=== PATIENT | male | born 1970 | race Caucasian/White ===

== ENCOUNTER 2024-05-29 11:05 | Outpatient (CLI) | payer OTHER | END 2024-05-29 23:59 | disposition home or self-care (01) | LOC: MRI02 11:05 | PROVIDERS: ATTEND Family Medicine Sports Medicine | DX: M19.012 Primary osteoarthritis, left shoulder (principal); M75.102 Unspecified rotator cuff tear or rupture of left shoulder, not specified as traumatic; M25.512 Pain in left shoulder; M77.9 Enthesopathy, unspecified | CPT/HCPCS: 73221 ==